=== PATIENT | female | born 1970 ===

== ENCOUNTER 2018-08-13 08:34 | Outpatient (CLI) | payer OTHER | END 2018-08-13 08:35 | disposition home or self-care (01) | LOC: C.USIC 08:35 ==

== ENCOUNTER 2018-09-15 08:23 | Outpatient (CLI) | payer OTHER | END 2018-09-15 08:24 | disposition home or self-care (01) | LOC: C.PAT 08:23 ==

== ENCOUNTER 2018-09-28 09:24 | Day surgery (SDC) | payer OTHER | END 2018-09-28 15:39 | disposition home or self-care (01) | LOC: C.SDS 09:24 | DX: N84.0 Polyp of corpus uteri (principal) ==